=== PATIENT | female | born 1945 | race Caucasian/White ===

== ENCOUNTER 2017-09-04 04:19 | Inpatient (IN) | payer OTHER ==
[~2017-09-04] VITALS: Ht 154.9 cm; Wt 81.6 kg
[2017-09-04] VITALS (10 sets, daily range): BP systolic 115–282; BP diastolic 48–142
[~2017-09-04 04:19] MED LIST: ALBUTEROL NEB; ALBUTEROL2.5 MG/31 INH; CEPHALEXIN 500500 M3 PO; COMBIVENT IN; DILTIAZEM 24HR300 M2 PO; FISH OIL 1,0001 EAC5 PO; HYDROCHLOROTHIA25 M1 PO; HYDROCODONE-AP1 EAC6 PO; IBUPROFEN 800800 M1 PO; MAVIK4 MG PO; MICARDIS HCT 81 EACH PO; SINGULAIR 10 MG10 M1 PO; SUPER-D3+ SOFT1 EACH PO; TRICOR145 MG PO
[2017-09-04 04:48] LABS: ABSOLUTE BASOPHILS 0.1 thou/uL (0.0-0.2); ABSOLUTE EOSINOPHILS 0.2 thou/uL (0.0-0.7); ABSOLUTE LYMPHOCYTES 1.2 thou/uL (0.8-5.3); ABSOLUTE NEUTROPHILS 8.7 thou/uL (1.6-8.1); BASOPHILS 1.1 %; EOSINOPHILS 1.8 %; HEMATOCRIT 37.8 % (37.0-47.0); HEMOGLOBIN 12.5 gm/dL (12.0-15.0); LYMPHOCYTES 10.8 %; MCH 28.7 pg (26.0-34.0); MCHC 33.1 g/dL (28.0-37.0); MCV 86.8 fL (80.0-100.0); MONOCYTES 8.7 %; MPV 10.3 fl. (7.2-11.1); NUCLEATED RBCS 0 /100WBC; PLATELET COUNT* 220 thou/uL (150-400); POLYS 77.6 %; RBC 4.36 mil/uL (4.20-5.00); WBC 11.2 thou/uL (4.0-11.0)
[2017-09-04 05:00] LABS: URINE BILIRUBIN NEGATIVE (Negative); URINE BLOOD 1+ (Negative); URINE CLARITY CLEAR; URINE COLOR STRAW; URINE GLUCOSE-RANDOM TRACE (Negative); URINE KETONES NEGATIVE (Negative); URINE LEUKOCYTES-REFLEX NEGATIVE (Negative); URINE NITRITE-REFLEX NEGATIVE (Negative); URINE PROTEIN 3+ (Negative); URINE SPECIFIC GRAVITY 1.015 (1.005-1.030); URINE UROBILINOGEN 0.2 E.U./dl (0.2-1.0)
[2017-09-04 05:21] LABS: CALCIUM 7.7 mg/dL (8.5-10.1); CREATININE 1.8 mg/dL (0.6-1.3); POTASSIUM 3.8 mmol/L (3.5-5.1)
[2017-09-04 05:32] LABS: ALBUMIN 2.8 g/dL (3.4-5.0); TOTAL BILIRUBIN 0.2 mg/dL (<0.1-1.0)
[2017-09-04 05:45] LABS: FINE GRANULAR CASTS 0-3 Few /LPF (None Seen); SQUAMOUS NONE SEEN /LPF (0-3); URINE WBC-REFLEX 0-5 Rare /HPF (0-5)
[2017-09-04 05:46] LABS: BACTERIA-REFLEX 1-9 Few /HPF (None Seen); CRYSTALS None Seen /LPF (None Seen); URINE RBC 3-10 Few /HPF (0-2)
[2017-09-04] MEDS ORDERED: BYETTA PEN 11 PENIN2 SUBQ (06:44)
[2017-09-04 09:47] LABS: URINE POTASSIUM-RANDOM 14.3 mmol/L
--- NOTE | 2017-09-04 11:59 | EKG ---
[place] [address] ELECTROCARDIOGRAM REPORT Name: DOROTHY OSEGUERA Room: [address] IN [facility]#: [id number] Admission: 09/04/17 Attend Phys: Chevy Escalante MD Discharge: Date of : 47 Report #: [id number] THIS REPORT FOR: //name// [facility] ED Test Date: 2017-09-04 Test Time: 04:29:16 Pat Name: DOROTHY OSEGUERA Department: Room: Gender: Custom Miller: TATEPANTERA : 1945 Requested By: Sherry Foote Order Number: [id number] MD: Osmani Nunez Measurements Intervals [place] Rate: 83 P: -22 UT: 142 QRS: 60 QRSD: 90 T: 106 QT: 352 QTc: 414 Interpretive Statements Sinus rhythm Nonspecific T abnormalities, lateral leads Compared to ECG 09/16/2015 15:47:57 Myocardial infarct finding no longer present T-wave abnormality still present Electronically Signed On 09-04-2017 11:58:58 CDT by Osmani Nunez [email or web address] <ELECTRONICALLY SIGNED> By: Osmani Nunez MD, [facility] 09/04/17 1158 0429 0429 Osmani Nunez MD, [facility] /EPI
--- NOTE | 2017-09-04 14:46 | 2DMMODE ---
[place] [address] 2 D/M-MODE ECHOCARDIOGRAM Name: DOROTHY OSEGUERA Room: [address] IN [facility]#: [id number] Admission: 09/04/17 Attend Phys: Chevy Escalante, Discharge: Date of : 47 Date of Service: 09/04/17 1446 Report #: [id number] THIS REPORT FOR: //name// APPROVED REPORT Study performed: 09/04/2017 12:00:22 EXAM: Comprehensive 2D, Doppler, and color-flow Echocardiogram Patient Location: In-Patient Room #: [facility] Status: routine BSA: 1.73 HR: 72 bpm BP: 207/85 mmHg Rhythm: NSR Other Information Study Quality: Good Indications Hypertension/HDD 2D Dimensions LVEF(%): 71.38 (>50%) IVSd: 16.58 (7-11mm) LVOT Diam: 21.16 (18-24mm) LVDd: 47.21 mm PWd: 14.43 (7-11mm) Ascending Ao: 31.90 (22-36mm) LVDs: 28.02 (25-40mm) Aortic Root: 30.84 mm Chase's LVEF: 71.38 % Volumes Left Atrial Volume (Systole) LA ESV Index: 40.70 mL/m2 Aortic Valve AoV Peak Nickolas.: 1.96 m/s AO Peak Gr.: 15.39 mmHg LVOT Max P.29 mmHg AO Mean Gr.: 7.92 mmHg LVOT Mean P.34 mmHg LVOT Max V: 1.60 m/s AO V2 VTI: 32.36 cm LVOT Mean V: 0.93 m/s HENRY (VTI): 3.23 cm2 LVOT V1 VTI: 29.73 cm Mitral Valve E/A Ratio: 0.75 [place] [address] 2 D/M-MODE ECHOCARDIOGRAM Name: DOROTHY OSEGUERA Room: [address] IN [facility]#: [id number] Admission: 09/04/17 Attend Phys: Chevy Escalante, Discharge: Date of : 47 Date of Service: 09/04/17 1446 Report #: [id number] MV Decel. Time: 271.42 ms MV E Max Nickolas.: 0.88 m/s MV PHT: 78.71 ms MVA (PHT): 2.79 cm2 TDI E/Lateral E': 12.57 E/Medial E': 11.00 Medial E' Nickolas.: 0.08 m/s Lateral E' Nickolas.: 0.07 m/s Pulmonary Valve PV Peak Nickolas.: 1.22 m/s PV Peak Gr.: 5.98 mmHg Tricuspid Valve TR Peak Gr.: 30.16 mmHg RVSP: 35.00 mmHg Left Ventricle The left ventricle is normal size. There is normal LV segmental wall motion. Moderate concentric left ventricular hypertrophy. Left ventricular systolic function is normal. The left ventricular ejection fraction is within the normal range. LVEF is 60-65%. Grade I - abnormal relaxation pattern. Right Ventricle The right ventricle is normal size. The right ventricular systolic function is normal. Atria Left atrium is mildly dilated. The right atrium size is normal. Aortic Valve The aortic valve is normal in structure. No aortic regurgitation is present. There is no aortic valvular stenosis. Mitral Valve The mitral valve is normal in structure. There is no mitral valve regurgitation noted. No evidence of mitral valve stenosis. Tricuspid Valve The tricuspid valve is normal in structure. Trace tricuspid regurgitation. The RVSP is 45 mmHg. Pulmonic Valve The pulmonary valve is normal in structure. There is no pulmonic [place] [address] 2 D/M-MODE ECHOCARDIOGRAM Name: DOROTHY OSEGUERA Room: [address] IN [facility]#: [id number] Admission: 09/04/17 Attend Phys: Chevy Escalante, Discharge: Date of : 47 Date of Service: 09/04/17 1446 Report #: [id number] Great Vessels The aortic root is normal in size. IVC is normal in size and collapses with >50% inspiration Pericardium There is no pericardial effusion. <Conclusion> Moderate concentric left ventricular hypertrophy. LVEF is 60-65%. Left atrium is mildly dilated. Trace tricuspid regurgitation. The RVSP is 45 mmHg. <ELECTRONICALLY SIGNED> By: Osmani Nunez MD, FACC 09/04/17 1446 1446 1446 Osmani Nunez MD, FACC /INF
[2017-09-05 00:33] VITALS: BP 141/58
[2017-09-05 04:20] VITALS: BP 155/65
[2017-09-05 08:00] VITALS: BP 159/69
[2017-09-05 12:00] VITALS: BP 157/55
[2017-09-05 16:00] VITALS: BP 146/53
[2017-09-05 20:00] VITALS: BP 135/52
[2017-09-06] VITALS: BP 142/61
[2017-09-06 04:00] VITALS: BP 135/52
[2017-09-06 05:17] LABS: HEMATOCRIT 32.7 % (37.0-47.0); HEMOGLOBIN 10.9 gm/dL (12.0-15.0); MCH 28.8 pg (26.0-34.0); MCHC 33.2 g/dL (28.0-37.0); MCV 86.6 fL (80.0-100.0); MPV 10.8 fl. (7.2-11.1); RBC 3.77 mil/uL (4.20-5.00); RDW-CV 13.9 % (10.5-14.5); WBC 17.4 thou/uL (4.0-11.0)
[2017-09-06 05:30] LABS: CALCIUM 8.3 mg/dL (8.5-10.1); MAGNESIUM 1.9 mg/dL (1.8-2.4); POTASSIUM 4.5 mmol/L (3.5-5.1)
[2017-09-06 05:32] LABS: CREATININE 3.6 mg/dL (0.6-1.3)
[2017-09-06 08:00] VITALS: BP 163/72
[2017-09-06 11:08] VITALS: BP 165/65
[2017-09-06 12:51] LABS: CALCIUM 8.3 mg/dL (8.5-10.1); CREATININE 3.9 mg/dL (0.6-1.3); POTASSIUM 4.2 mmol/L (3.5-5.1)
[2017-09-06 16:15] VITALS: BP 137/57
[2017-09-06 20:00] VITALS: BP 162/63
[2017-09-07 00:02] VITALS: BP 151/56
[2017-09-07 04:00] VITALS: BP 165/71
[2017-09-07 05:32] LABS: CALCIUM 8.4 mg/dL (8.5-10.1); CREATININE 4.4 mg/dL (0.6-1.3); MAGNESIUM 2.2 mg/dL (1.8-2.4); POTASSIUM 4.7 mmol/L (3.5-5.1)
[2017-09-07 08:00] VITALS: BP 185/78
[2017-09-07 10:12] LABS: URINE BILIRUBIN NEGATIVE (Negative); URINE BLOOD NEGATIVE (Negative); URINE CLARITY CLEAR; URINE COLOR YELLOW; URINE GLUCOSE-RANDOM TRACE (Negative); URINE KETONES NEGATIVE (Negative); URINE LEUKOCYTES-REFLEX NEGATIVE (Negative); URINE NITRITE-REFLEX NEGATIVE (Negative); URINE PROTEIN 2+ (Negative); URINE UROBILINOGEN 0.2 E.U./dl (0.2-1.0)
[2017-09-07 10:20] LABS: CRYSTALS None Seen /LPF (None Seen); HYALINE CASTS 0-3 Few /LPF (None Seen); MUCUS None Seen strn/LPF (None Seen); SQUAMOUS 4-10 Moderate /LPF (0-3)
[2017-09-07 10:21] LABS: BACTERIA-REFLEX None Seen /HPF (None Seen); URINE RBC None Seen /HPF (0-2); URINE WBC-REFLEX 0-5 Rare /HPF (0-5)
[2017-09-07 11:33] VITALS: BP 169/67
[2017-09-07 15:27] VITALS: BP 110/49
[2017-09-07 16:08] LABS: GLOBULIN TOTAL 2.2 g/dL (2.2-3.9); M-SPIKE Not Observed g/dL (Not Observed)
[2017-09-07 17:09] LABS: URINE PROTEIN (MG/DL) 73.9 mg/dL (Not Estab.)
[2017-09-07 20:00] VITALS: BP 108/46
[2017-09-08] VITALS: BP 111/42
[2017-09-08 04:33] VITALS: BP 113/76; BP 133/76
[2017-09-08 07:45] VITALS: BP 157/58
[2017-09-08 08:44] LABS: CALCIUM 7.9 mg/dL (8.5-10.1); CREATININE 4.6 mg/dL (0.6-1.3); POTASSIUM 3.8 mmol/L (3.5-5.1)
--- NOTE | 2017-09-08 10:28 | CON ---
[address] [address] CONSULTATION Name: DOROTHY OSEGUERA Room: [address] IN .R.#: [id number] Admission: 09/04/17 Attend Phys: Chevy Escalante MD Discharge: Date of : 47 Report #: [id number] THIS REPORT FOR: //name// CC: Chevy Barajas DATE OF SERVICE: 09/07/2017 NEPHROLOGY CONSULTATION CONSULTING PHYSICIAN: Dr. Tolbert. REASON FOR NEPHROLOGY CONSULTATION: Acute kidney injury with worsening creatinine every day. CHIEF COMPLAINT: Shortness of breath. HISTORY OF PRESENT ILLNESS: This is a 71-year-old female who has a past medical history of asthma, hypertension, diabetes, according to her, no retinopathy, who came in with 24 hours worsening of shortness of breath before she came to the hospital. The patient was working outside in a lone when she started having wheezing. She came to the ER and she was started on steroids with which her breathing has improved. She also had an echocardiogram done, which showed a grade 1 diastolic dysfunction, but a normal ejection fraction of 71% with RVSP of 45 mmHg. It was also noticed that her blood pressure was extremely high. Systolic blood pressure was running almost 282 systolic. The patient did have an abrupt decline in her blood pressure during her hospital course, but it is again running high now. Her creatinine was found to be elevated to 1.8 when she came in and it has slowly gone up and was 3.6 yesterday morning, 3.9 yesterday last night and 4.4 this morning with a BUN of 95 and hence Nephrology has been consulted. At home, she takes hydrochlorothiazide 25 mg a day, telmisartan 80 mg with hydrochlorothiazide 12.5 mg a day along with other medications. She does not check her blood pressure regularly at home, but she does monitor her sodium intake. She has never been told that she has any kidney problems. She has not passed any kidney stones recently, but has done so in the past. She does take Advil, but only about 2-3 tablets a month. No diarrhea or vomiting. She says she was eating and drinking okay before she came to the hospital. In 2016, her creatinine was 0.9-1. Currently, she is not in any acute distress. Shortness of breath is much better. ALLERGIES: No known drug allergies. REVIEW OF SYSTEMS: Shortness of breath, which is improved. P.o. intake is so-so right now. Other organ systems were reviewed and they were negative. PAST MEDICAL HISTORY: Includes history of hypertension, diabetes, [place] [address] CONSULTATION Name: DOROTHY OSEGUERA Room: [address] IN .#: [id number] Admission: 09/04/17 Attend Phys: Chevy Escalante MD Discharge: Date of : 47 Report #: [id number] asthma, history of hyperlipidemia, history of nephrolithiasis and other medical history was negative. PAST SURGICAL HISTORY: Includes cholecystectomy, section, kidney stone surgery. FAMILY HISTORY: No history of any kidney disease in the family. 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 She does not smoke or take recreational drugs or use alcohol. HOME MEDICATIONS: Include montelukast, fenofibrate, diltiazem, telmisartan- hydrochlorothiazide, hydrochlorothiazide separately, Combivent, albuterol, . PHYSICAL EXAMINATION: VITAL SIGNS: Blood pressure is 185/78, pulse rate is 74, temperature 36.4, respiratory rate is 18, pulse ox is 96% on room air. GENERAL: She is awake, alert, oriented x 3. HEAD, EYES, EARS, NOSE AND THROAT: Mucous membranes are moist. NECK: There was no JVD noted. CHEST: Clear to auscultation bilaterally. No crackles or wheezing. CARDIOVASCULAR: S1, S2 normal. No murmurs heard. ABDOMEN: Soft, nondistended, nontender. Bowel sounds are present. EXTREMITIES: She has no lower extremity edema and symmetrical extremities. SKIN: Dry and skin turgor seems to be normal. NEUROLOGICAL FUNCTION: Gross neurological function seems to be intact. PSYCHIATRIC: Mood and affect seems to be normal. LABORATORY DATA: From this morning, WBC was 17.4, potassium was 4.7, sodium was 137, BUN of 95, creatinine was 4.4 and calcium is 8.4. Other labs were reviewed. IMAGING: Chest x-ray, renal ultrasound and V/Q scan, they were reviewed. ASSESSMENT AND PLAN: 1. Acute kidney injury on likely chronic kidney disease: Her baseline creatinine is not known, but creatinine is now going up. Acute kidney injury is likely with hemodynamic fluctuations in the presence of hydrochlorothiazide and ARB. I would avoid diuretics and BRIAN inhibitors, ARB in the setting of acute kidney injury. She does have some blood in the urine and some protein in the urine, but this is most likely because of accelerated hypertension. Goal is to control blood pressure slowly. I have ordered some serological workup for hematuria and serum immunofixation is pending. Ultrasound did not show any evidence of hydronephrosis. There is no acute need for dialysis. We will give her 1 day challenge with IV fluids in the form of normal saline [place] [address] [place] [address] CONSULTATION Name: DOROTHY OSEGUERA Room: [address] IN .R.#: [id number] Admission: 09/04/17 Attend Phys: Chevy Escalante MD Discharge: Date of : 47 Report #: [id number] hour. 2. Accelerated hypertension: Goal is to control her blood pressure slowly. I have added hydralazine 25 mg t.i.d. withholding parameters to hold for systolic blood pressure less than 120 and I also ordered nifedipine 60 mg a day. Avoid diuretics and BRIAN inhibitor, ARB in the setting of acute kidney injury for now. 3. Proteinuria: This is likely because of accelerated hypertension. Proteinuria should be checked once her blood pressure is better controlled. 4. It will be worthwhile to find out her baseline creatinine if possible. 5. Shortness of breath, asthma exacerbation: The patient has improved with steroids. She does have grade 1 diastolic dysfunction on her echocardiogram, but it does not look like this was congestive heart failure exacerbation. IV fluids will be given as mentioned above. Thank you for this consultation and I will continue to follow along with you and I discussed with Dr. Tolbert as well as the patient's nurse, Christian. <ELECTRONICALLY SIGNED> By: Onelia You MD 09/08/17 1028 1000 MD gregorio Inman
[2017-09-08 11:33] VITALS: BP 145/62
[2017-09-08 14:11] LABS: COMPLEMENT-C4 19 mg/dL (14-44)
[2017-09-08 15:40] VITALS: BP 146/52
[2017-09-08 20:00] VITALS: BP 178/59
[2017-09-08 22:09] LABS: HEPATITIS B SURFACE AG Negative (Negative)
[2017-09-09] VITALS: BP 167/68
[2017-09-09 04:00] VITALS: BP 169/80
[2017-09-09 05:08] LABS: CREATININE 4.6 mg/dL (0.6-1.3); POTASSIUM 4.2 mmol/L (3.5-5.1)
[2017-09-09 08:00] VITALS: BP 204/81
[2017-09-09 10:09] LABS: ANA INTERPRETATION Negative (Negative)
[2017-09-09 11:30] VITALS: BP 156/63
[2017-09-09 15:48] VITALS: BP 141/61
[2017-09-09 16:08] LABS: KAPPA FREE LIGHT CHAINS 18.1 mg/L (3.3-19.4)
[2017-09-09 20:00] VITALS: BP 161/62
[2017-09-10] VITALS: BP 147/61
[2017-09-10 04:39] VITALS: BP 161/65
[2017-09-10 05:44] LABS: ALBUMIN 2.4 g/dL (3.4-5.0); CALCIUM 7.9 mg/dL (8.5-10.1); CREATININE 4.4 mg/dL (0.6-1.3); POTASSIUM 4.3 mmol/L (3.5-5.1); TOTAL BILIRUBIN 0.3 mg/dL (<0.1-1.0); TOTAL PROTEIN 4.5 g/dL (6.4-8.2)
[2017-09-10] MEDS ORDERED: ADULT LOW DOSE81 MG PO (09:08)
[2017-09-10] MEDS ORDERED: CATAPRES0.2 MG PO (09:08)
[2017-09-10] MEDS ORDERED: HYDRALAZINE 2525 MG PO (09:08)
[2017-09-10] MEDS ORDERED: PROCARDIA XL60 MG PO (09:08)
[2017-09-10 09:11] LABS: GLOMERULR BASEM MEMBRN AB 3 units (0-20)
[2017-09-10 09:30] VITALS: BP 188/63
[2017-09-10 11:42] VITALS: BP 156/55
[2017-09-10 15:58] VITALS: BP 167/62
[2017-09-10 17:51] VITALS: BP 167/62
== END 2017-09-10 18:30 | disposition home or self-care (01) | DRG 682 ==
LOC: M.ERS 04:19 → M.TBA-ER 05:35 → M.2W 05:35
PROVIDERS: Emergency Medicine; Internal Medicine; Internal Medicine Nephrology; ADMIT Internal Medicine
DX: N17.0 Acute kidney failure with tubular necrosis (principal); I50.31 Acute diastolic (congestive) heart failure; J45.901 Unspecified asthma with (acute) exacerbation; R65.10 Systemic inflammatory response syndrome (SIRS) of non-infectious origin without acute organ dysfunction; I16.1 Hypertensive emergency; I13.0 Hypertensive heart and chronic kidney disease with heart failure and stage 1 through stage 4 chronic kidney disease, or unspecified chronic kidney disease; E11.22 Type 2 diabetes mellitus with diabetic chronic kidney disease; E78.5 Hyperlipidemia, unspecified; N18.4 Chronic kidney disease, stage 4 (severe); Z90.49 Acquired absence of other specified parts of digestive tract; Z87.442 Personal history of urinary calculi

== ENCOUNTER 2017-09-12 14:18 | Inpatient (IN) | payer OTHER ==
[~2017-09-12] VITALS: Ht 154.9 cm; Wt 69.1 kg
[~2017-09-12 14:18] MED LIST changes: +ADULT LOW DOSE81 MG PO; +BYETTA PEN 11 PENIN2 SUBQ; +CATAPRES0.2 MG PO; +HYDRALAZINE 2525 MG PO; +PROCARDIA XL60 MG PO
[2017-09-12 14:24] VITALS: BP 181/58
[2017-09-12] MEDS ORDERED: COMBIVENT INH (14:35)
[2017-09-12 15:09] LABS: HEMATOCRIT 33.3 % (37.0-47.0); HEMOGLOBIN 11.3 gm/dL (12.0-15.0); MCH 28.9 pg (26.0-34.0); MCHC 33.9 g/dL (28.0-37.0); MCV 85.2 fL (80.0-100.0); MPV 9.4 fl. (7.2-11.1); NUCLEATED RBCS 0 /100WBC; PLATELET COUNT* 276 thou/uL (150-400); RBC 3.91 mil/uL (4.20-5.00); RDW-CV 13.6 % (10.5-14.5); WBC 12.6 thou/uL (4.0-11.0)
[2017-09-12 15:18] LABS: ANION GAP 15 mmol/L (7-16); BUN 72 mg/dL (7-18); CALCIUM 8.2 mg/dL (8.5-10.1); CHLORIDE 102 mmol/L (98-107); CO2 21 mmol/L (21-32); CREATININE 3.5 mg/dL (0.6-1.3); GLUCOSE 88 mg/dL (70-99); POTASSIUM 3.6 mmol/L (3.5-5.1); SODIUM 138 mmol/L (136-145)
[2017-09-12 15:29] LABS: ALBUMIN 2.6 g/dL (3.4-5.0); ALKALINE PHOSPHATASE 39 U/L (46-116); MAGNESIUM 2.2 mg/dL (1.8-2.4); NT-PRO BRAIN NAT PEPTIDE 2476 pg/mL (<300); SGOT 17 U/L (15-37); SGPT 21 U/L (30-65); TOTAL BILIRUBIN 0.4 mg/dL (<0.1-1.0); TOTAL PROTEIN 5.7 g/dL (6.4-8.2); TROPONIN-I LEVEL <0.06 ng/mL (<0.06)
[2017-09-12 15:36] LABS: URINE BILIRUBIN NEGATIVE (Negative); URINE BLOOD NEGATIVE (Negative); URINE CLARITY CLEAR; URINE COLOR YELLOW; URINE GLUCOSE-RANDOM NEGATIVE (Negative); URINE KETONES NEGATIVE (Negative); URINE LEUKOCYTES-REFLEX NEGATIVE (Negative); URINE NITRITE-REFLEX NEGATIVE (Negative); URINE PROTEIN 2+ (Negative); URINE SPECIFIC GRAVITY 1.025 (1.005-1.030); URINE UROBILINOGEN 0.2 E.U./dl (0.2-1.0)
[2017-09-12 15:38] LABS: ABSOLUTE EOSINOPHILS 0.1 thou/uL (0.0-0.7); ABSOLUTE LYMPHOCYTES 0.4 thou/uL (0.8-5.3); ABSOLUTE MONOCYTES 0.6 thou/uL (0.0-1.2); ABSOLUTE NEUTROPHILS 11.5 thou/uL (1.6-8.1)
[2017-09-12 15:39] LABS: PLATELET ESTIMATE ADEQUATE
[2017-09-12 15:48] LABS: AMORPHOUS URATES Few /LPF (None Seen); BACTERIA-REFLEX 1-9 Few /HPF (None Seen); CASTS None Seen /LPF (None Seen); SQUAMOUS 0-3 Few /LPF (0-3); TRANSITIONAL EPITHEL CELL 0-3 Few /LPF (None Seen); URINE RBC None Seen /HPF (0-2); URINE WBC-REFLEX 0-5 Rare /HPF (0-5)
[2017-09-12 17:40] VITALS: BP 172/57
[2017-09-12 18:39] VITALS: BP 167/57
[2017-09-12 19:00] VITALS: BP 168/60
--- NOTE | 2017-09-12 20:08 | NUR ---
PATIENT ADMITTED TO ROOM 308 VIA CART FROM ER AT 1850. 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 IV FLUIDS INFUSING ORDERED TO RIGHT FOREARM. PATIENT'S ADMISSION HISTORY OBTAINED CHARTED. UP WITH SBA TO BATHROOM. PATINET NSR ON MONITOR. FAMILY AT BEDSIDE. ORDERS NOTED. CALL LIGHT WITHIN REACH. WILL CONTINUE WITH PLAN OF CARE.
[2017-09-12 23:24] VITALS: BP 143/51
[2017-09-13 03:57] LABS: HEMATOCRIT 31.3 % (37.0-47.0); HEMOGLOBIN 10.5 gm/dL (12.0-15.0); MCHC 33.6 g/dL (28.0-37.0); MCV 86.3 fL (80.0-100.0); MPV 10.2 fl. (7.2-11.1); RBC 3.63 mil/uL (4.20-5.00); WBC 10.6 thou/uL (4.0-11.0)
[2017-09-13 04:00] LABS: CREATININE 3.6 mg/dL (0.6-1.3); POTASSIUM 3.8 mmol/L (3.5-5.1)
[2017-09-13 04:40] VITALS: BP 148/55
--- NOTE | 2017-09-13 05:17 | NUR ---
ADMISSION FINSIHED THIS SHIFT. PT SLEPT MOST OF SHIFT. ASSESSMENT DOCUMENTED. MEDS GIVEN PER E-MAR. NO REPORTS OF PAIN ON NAUSEA. IV PATENT, FLUIDS INFUSING. WILL CONTINUE WITH PLAN OF CARE.
[2017-09-13 09:00] VITALS: BP 185/62
[2017-09-13 11:31] VITALS: BP 185/64
--- NOTE | 2017-09-13 12:52 | NUR ---
ASSUMED CARES OF PT AT 0700. PT IN BED, BED IN LOW LOCKED POSITION. CALL BUTTON AND PERSONAL ITEMS IN PT REACH. FALL PRECAUTIONS IN PLACE. 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 HYPERTENSIVE. AFEBRILE. PT DENIES PAIN AT THIS TIME. PT PASSING AIR. SKIN INTACT, NO EDEMA NOTED. PT UP INDEPENDENTLY, STEADY / STURDY GAIT. RIGHT FA IV PATENT WITH FLUIDS INFUSING NS 50 ML/HR. MONITOR I&O'S PER NEPHROLOGY. FULL LIQUID DIET. CONSULTS GI AND NEPHROLOGY. HOURLY ROUNDING CONTINUES. WILL CONTINUE TO MONITOR PT STATUS.
--- NOTE | 2017-09-13 15:54 | EKG ---
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
[2017-09-13 16:00] VITALS: BP 155/53
[2017-09-13 19:50] VITALS: BP 165/54
--- NOTE | 2017-09-13 20:14 | NUR ---
REPORT TO RN MANAGED CARE FOR CONTINUED CARES. PT REMAINS STABLE. PT PASSED SMALL HARD BROWN BM THIS SHIFT. PT UP INDEPENDENTLY TO BATHROOM. DIET TOLERATED WELL. PT COOPERATIVE, FRIENDLY, PLEASANT. HOURLY ROUNDING COMPLETED.
[2017-09-13 23:43] VITALS: BP 146/58
[2017-09-14 04:00] VITALS: BP 146/47
[2017-09-14 04:49] LABS: ALBUMIN 2.5 g/dL (3.4-5.0); CALCIUM 8.2 mg/dL (8.5-10.1); CREATININE 3.3 mg/dL (0.6-1.3); MAGNESIUM 2.2 mg/dL (1.8-2.4); POTASSIUM 3.8 mmol/L (3.5-5.1); TOTAL BILIRUBIN 0.3 mg/dL (<0.1-1.0); TOTAL PROTEIN 5.1 g/dL (6.4-8.2)
[2017-09-14 04:53] LABS: HEMATOCRIT 29.9 % (37.0-47.0); HEMOGLOBIN 10.5 gm/dL (12.0-15.0); MCH 29.8 pg (26.0-34.0); MCV 85.1 fL (80.0-100.0); MPV 10.1 fl. (7.2-11.1); RBC 3.51 mil/uL (4.20-5.00); RDW-CV 13.5 % (10.5-14.5); WBC 9.5 thou/uL (4.0-11.0)
--- NOTE | 2017-09-14 05:07 | NUR ---
PT SLEPT MOST OF SHIFT. ASSESSMENT DOCUMENTED. MEDS GIVEN PER E-JUN. NO REPORTS OF PAIN OR NAUSEA. IV PATENT, FLUIDS INFUSING. WILL CONTINUE WITH PLAN OF CARE.
[2017-09-14 08:15] VITALS: BP 190/59
--- NOTE | 2017-09-14 08:22 | CON ---
[address] [address] CONSULTATION Name: DOROTHY OSEGUERA Room: [address] IN [facility]#: [id number] Admission: 09/12/17 Attend Phys: Venu Stephens, Discharge: Date of : 47 Report #: [id number] THIS REPORT FOR: //name// CC: Lobito Barajas Venu Stephens DATE OF SERVICE: 09/13/2017 REQUESTING PHYSICIAN: Venu Stephens MD REASON FOR CONSULT: Abnormal CT and the patient with symptoms of nausea and early satiety. HISTORY OF PRESENT ILLNESS: This is a 71-year-old female with renal failure, exacerbation of asthma, and uncontrolled hypertension, who has recently been discharged from hospital and readmitted. Her new diagnosis was CHF. The patient also reports that she has been feeling nauseous and have sensation of fullness. She also is constipated and reports that she usually has a bowel movement daily. She has had a colonoscopy in the remote past, but does not recall the results. The patient also believes that the [place] which she was started on may have contributing into her nausea. PAST MEDICAL HISTORY: Significant for history of ; asthma; dyslipidemia; diabetes mellitus; hypertension; gallbladder disease, status post cholecystectomy; kidney stone removal. ALLERGIES: No known drug allergy. MEDICATIONS: Please refer to hospital MAR. SOCIAL HISTORY: The patient denies tobacco or alcohol use. FAMILY HISTORY: Noncontributory. PHYSICAL EXAMINATION: VITAL SIGNS: Reveals blood pressure of 148/55, respirations 16, pulse 70, temperature 98.1. LUNGS: Clear. CARDIOVASCULAR: Regular. ABDOMEN: Soft, mildly distended. Bowel sounds are hypoactive. NEUROLOGIC: The patient is alert and oriented x 3. LABORATORY DATA: Reveal sodium of 138, potassium 3.8, BUN is 71, creatinine 3.6, glucose is 65, AST 71, ALT 21, alkaline phosphatase 39, total bilirubin is 0.4, calcium is 8.0, total protein 5.7, albumin is 2.6. INR is 1.0. WBC 10.6 with hemoglobin of 10.5 and platelet [place] 228[place] [address] CONSULTATION Name: DOROTHY OSEGUERA Room: [address] IN [facility]#: [id number] Admission: 09/12/17 Attend Phys: Venu Stephens, Discharge: Date of : 47 Report #: [id number] IMAGING: CT of abdomen and pelvis was obtained. This was significant for mild right upper quadrant and pelvic ascites. There may be also a low-grade partial left upper quadrant small-bowel obstruction as there is small bowel dilation at this level. The liver, pancreas and spleen appeared normal. ASSESSMENT AND PLAN: The patient with anorexia and possible ileus, who also reports constipation for 3 days. I will put her on a motility agent and MiraLax and obtain a KUB tomorrow. We will make further recommendation after her KUB tomorrow. At some point, she may need endoscopic evaluation, but we will make these recommendations at a later time. <ELECTRONICALLY SIGNED> By: Ny Penn MD 09/14/17 0822 0951 2043Ny Penn MD /nt
[2017-09-14 12:00] VITALS: BP 154/73
[2017-09-14 16:00] VITALS: BP 177/56
--- NOTE | 2017-09-14 18:20 | NUR ---
PATIENT RESTING IN BED. PATIENT DENIES ANY PAIN. PATIENT IS TOLERATING FULL LIQUID DIET. PATIENT HAS HAD MULTIPLE BOWEL MOVEMENTS TODAY. PATIENT IS UP AD MARIA LUISA IN ROOM. PATIENT DENIES ANY NEEDS AT THIS TIME. CALL LIGHT WITHIN REACH. WILL CONTINUE TO MONITOR.
[2017-09-14 23:41] VITALS: BP 139/46
[2017-09-15] VITALS (7 sets, daily range): BP systolic 137–203; BP diastolic 45–78
[2017-09-15 04:27] LABS: CALCIUM 8.2 mg/dL (8.5-10.1); CREATININE 2.9 mg/dL (0.6-1.3); PHOSPHORUS* 4.5 mg/dL (2.5-4.9); POTASSIUM 3.8 mmol/L (3.5-5.1)
--- NOTE | 2017-09-15 05:14 | NUR ---
PT SLEPT WELL OVERNIGHT. SLIV. UP AD MARIA LUISA IN ROOM URINATING WELL, BM OVERNIGHT. DENIES N/V OR ABD PAIN. HS ACCUCHECK 154. TELE SR. AM LABS DRAWN. ABLE TO USE CALL LITE AND MAKE NEEDS KNOWN.
--- NOTE | 2017-09-15 13:12 | NUR ---
SW to continue to follow. Since pt renal function improving, possible for pt to not need dialysis at dc; pt hopeful. SW will assist with any safe dc planning needs should they arise. Plan for pt to dc home with family.
--- NOTE | 2017-09-15 16:27 | NUR ---
PATIENT A&OX4, ROOM AIR, IV RIGHT FOREARM SALINE LOCK. UP AD MARIA LUISA, STEADY GAIT. NO C/O PAIN/N/V. CONTINUEING TO MONITOR BOWEL REGIMEN. BILATERAL LOWER EXTREMITY EDEMA. NO OTHER CONCERNS AT THIS TIME. APPROPRAITE AND COOPORATIVE WITH CARE.
[2017-09-16 03:52] VITALS: BP 170/70
[2017-09-16 04:58] LABS: CALCIUM 7.8 mg/dL (8.5-10.1); CREATININE 2.8 mg/dL (0.6-1.3); POTASSIUM 3.9 mmol/L (3.5-5.1)
--- NOTE | 2017-09-16 05:12 | NUR ---
ASSESSMENT COMPLETE. PT SLEPT THROUGH THE NIGHT WITHOUT ANY CONCERNS. PT DENIES PAIN AND N/V. PT IS ON ROOM AIR WITH [place] SATS. PT IS ON MONITOR, NSR. PT IS UP AD MARIA LUISA WITH STEADY GAIT. PT SOA WITH EXERTION. SEE ASSESSMENT FOR OTHER DETAILS. CALL LIGHT WITHIN REACH, WILL CONTINUE PLAN OF CARE.
[2017-09-16 08:00] VITALS: BP 193/65
[2017-09-16 11:24] VITALS: BP 153/61
[2017-09-16] MEDS ORDERED: PRAZOSIN HCL1 MG PO (15:09)
[2017-09-16] MEDS ORDERED: HYDRALAZINE 2525 MG PO (15:09)
[2017-09-16] MEDS ORDERED: PROCARDIA XL30 MG PO (15:09)
[2017-09-16] MEDS ORDERED: MIRALAX17 GM PO (15:40)
[2017-09-16 15:41] VITALS: BP 153/61
[2017-09-16 16:17] VITALS: BP 178/56
--- NOTE | 2017-09-16 17:15 | NUR ---
PATIENT A&OX4, ROOM AIR, IV RIGHT WRIST SALINE LOCK. UP AD MARIA LUISA, STEADY GAIT. NO C/O PAIN/N/V. BP RUNS HIGH, RESOLVED WITH INCREASE OF BP MEDICATION. PATIENT DISCHARGED TODAY. REVIEWED PAPERWORK WITH PATIENT WHILE DAUGHTER AT BEDSIDE. SCRIPTS GIVEN, ALL QUESTIONS AND CONCERNS ANSWERED. NO FURTHER QUESTIONS AT THIS TIME. IV DISCONTINUED, CATHETER FULLY INTACT. PATIENT LEFT UNIT AT 1650 VIA W/C WITH DAUGHTER. ALL BELONGINGS TAKEN WITH PATIENT, NOTHING LEFT BEHIND. APPROPRIATE AND COOPORATIVE WITH CARE.
--- NOTE | 2017-09-24 12:02 | CON ---
[address] [address] CONSULTATION Name: DOROTHY OSEGUERA Room: [address] [place] .R.#: [id number] Admission: 09/12/17 Attend Phys: Venu Stephens, Discharge: 09/16/17 Date of : 47 Report #: [id number] THIS REPORT FOR: //name// CC: Lobito Barajas Venu Stephens DATE OF SERVICE: 09/13/2017 CONSULTING PHYSICIAN: Venu Stephens MD REASON FOR NEPHROLOGY CONSULTATION: Recent acute kidney injury and uncontrolled hypertension. CHIEF COMPLAINT: Nausea, poor p.o. intake and abdominal bloating. HISTORY OF PRESENT ILLNESS: This is a 71-year-old female who has past medical history of asthma, hypertension, diabetes, no retinopathy who was recently discharged on 09/10 from [facility] when she was admitted for uncontrolled blood pressure and shortness of breath and also had acute kidney injury at that time. Her creatinine had peaked to 4.4 and then stabilized. It was determined that she had an asthma exacerbation at that time, which got better with prednisone. She also had an echo done, which showed a normal ejection fraction of 71% recently with RVSP of 45 mmHg with grade 1 diastolic dysfunction. It did not look like she was in CHF exacerbation at that time and her diuretics and BRIAN inhibitor were stopped because of acute kidney injury. Her creatinine has improved to 3.5 as of yesterday and it is 3.6 today. So she came in again to the hospital because after she took her Byetta for her diabetes, she had nausea and just a sensation of vomiting, but no real vomiting and she has not had a bowel movement in the last 2 days and she felt abdominal bloating. She has had similar symptoms with Aidee recently as well. It was also noticed that the patient's blood pressure was high when she came into the hospital in 180 systolic, but then got better to 148 systolic with holding home blood pressure medications. Blood pressure has again gone up this morning. Nephrology has been consulted because of her elevated creatinine and high blood pressure. We do not know her exact baseline creatinine, but her creatinine on 09/04/2017 was 1.8. The patient is feeling a little better, but she still has bloating in her abdomen and she is not comfortable because she has not had a bowel movement in the last 2 days. She does not take any NSAIDs and there is no recent history of kidney stones and she has no urinary complaints and she says she has been urinating a lot. ALLERGIES: She has no known drug allergies. REVIEW OF SYSTEMS: Nausea, abdominal bloating, constipation and other organ systems were reviewed [place] [address] CONSULTATION Name: DOROTHY OSEGUERA Room: [address] [place] M.R.#: [id number] Admission: 09/12/17 Attend Phys: Venu Stephens, Discharge: 09/16/17 Date of : 47 Report #: [id number] PAST MEDICAL HISTORY: Includes history of hypertension, diabetes, asthma, hyperlipidemia, history of nephrolithiasis. PAST SURGICAL HISTORY: Includes cholecystectomy, section, kidney stone surgery. FAMILY HISTORY: No history of any kidney disease in the family. 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 She does not smoke or take recreational drugs or use alcohol. HOME MEDICATIONS: They include clonidine 0.2 mg b.i.d., hydralazine 25 mg t.i.d. as needed, nifedipine 60 mg once a day, aspirin 81 mg once a day, montelukast, diltiazem 300 mg daily, hydrochlorothiazide 25 mg daily which the patient was not taking, fenofibrate 145 mg daily, Combivent, albuterol, exenatide or Byetta. PHYSICAL EXAMINATION: VITAL SIGNS: Blood pressure is 148/55, respiratory rate 16, pulse rate 70, temperature 36.7, and pulse ox was 92% on room air. GENERAL: She is awake, alert, oriented x 3. HEAD, EYES, EARS, NOSE, THROAT: Mucous membranes are moist. NECK: No JVD. CHEST: Clear to auscultation bilaterally. No crackles or wheezing. CARDIOVASCULAR: S1, S2 normal. No murmurs or rubs. ABDOMEN: Soft, but it is bloated, it is not tender. Bowel sounds are diminished. Distended. LOWER EXTREMITIES: There is no edema. Symmetrical extremities. NEUROLOGICAL FUNCTION: Gross neurological function is intact. PSYCHIATRIC: Mood and affect seem to be normal. LABORATORY DATA: From today, hemoglobin is 10.5, WBC 7.6. Sodium is 138, potassium is 3.8 and creatinine is 3.6, CO2 is 19. Other labs were reviewed. IMAGING: Chest x-ray, abdominal and pelvic CT were reviewed. There was no abnormality at the level of her kidneys on abdominal CT. She had evidence of low grade partial small bowel obstruction. ASSESSMENT AND PLAN: 1. Recent acute kidney injury because of ischemic acute tubular necrosis because of BRIAN inhibitor and diuretics: The patient's creatinine had recently peaked at 4.4, in fact it is getting better now. It is 3.6 today. Creatinine was 3.5 yesterday, but I would still say that it is in a stable range. She is still making urine. We need to record her urine output accurately. I would avoid all diuretics right now and BRIAN inhibitors and ARBs. There is no evidence of any obstruction on abdominal CT scan. Avoid other [place] [address] CONSULTATION Name: DOROTHY OSEGUERA Room: [address] [place] M.R.#: [id number] Admission: 09/12/17 Attend Phys: Venu Stephens, Discharge: 09/16/17 Date of : 47 Report #: [id number] exact baseline creatinine is not known but we do know that before her acute kidney injury, started on 09/04/2017, her creatinine was 1.8. UA shows 2+ protein, but no blood in it. Similar findings as before and probably she has some proteinuria because of hypertension. 2. Uncontrolled hypertension: She was recently started on nifedipine and hydralazine. We will continue her other blood pressure medications, but stop hydrochlorothiazide. The patient was not taking hydrochlorothiazide at home as well. We will increase her nifedipine to 90 mg once a day and follow her blood pressure. 3. Partial small bowel obstruction: GI has been consulted. This can explain her abdominal bloating and nausea sensation. Off to note Aidee can also cause nausea and constipation. It seems like Aidee is not suiting her and she probably will do better without it. We will defer to primary team for that. 4. Chronic diastolic congestive heart failure: The patient is currently looking mildly hypovolemic. Agree with normal saline at 50 mL an hour for now. She does not need any diuretics right now. Her ejection fraction was 71% with grade 1 diastolic dysfunction with right ventricular systolic pressure of 45 mmHg. 5. Metabolic acidosis: No need for sodium bicarbonate right now but if it keeps getting worse, then we may have to add some. This is because of her renal dysfunction. Thank you for this consultation and we will continue to follow along with you. Plan was discussed with the patient and the patient's daughter as well as the patient's nurse, . <ELECTRONICALLY SIGNED> By: Onelia You MD 09/24/17 1202 0915 1950Onelia You MD /nt
== END 2017-09-16 16:50 | disposition home or self-care (01) | DRG 682 ==
LOC: M.ERS 14:18 → M.3W 16:59 → M.TBA-ER 16:59 → M.3W 18:51
PROVIDERS: Internal Medicine Nephrology; Nurse Practitioner Family; ADMIT Family Medicine
DX: N17.9 Acute kidney failure, unspecified (principal); E43 Unspecified severe protein-calorie malnutrition; R65.11 Systemic inflammatory response syndrome (SIRS) of non-infectious origin with acute organ dysfunction; I13.0 Hypertensive heart and chronic kidney disease with heart failure and stage 1 through stage 4 chronic kidney disease, or unspecified chronic kidney disease; K56.600 Partial intestinal obstruction, unspecified as to cause; I50.32 Chronic diastolic (congestive) heart failure; E87.2 Acidosis; R18.8 Other ascites; N18.4 Chronic kidney disease, stage 4 (severe); R63.0 Anorexia; J45.909 Unspecified asthma, uncomplicated; E78.5 Hyperlipidemia, unspecified; E11.9 Type 2 diabetes mellitus without complications; Z79.82 Long term (current) use of aspirin; Z98.891 History of uterine scar from previous surgery; Z79.899 Other long term (current) drug therapy; Z87.442 Personal history of urinary calculi; Z90.49 Acquired absence of other specified parts of digestive tract; Z68.28 Body mass index [BMI] 28.0-28.9, adult

== ENCOUNTER 2017-09-22 20:46 | Emergency (ER) | payer OTHER ==
[~2017-09-22] VITALS: Ht 154.9 cm; Wt 64.9 kg
[~2017-09-22 20:46] MED LIST changes: +COMBIVENT INH; +MIRALAX17 GM PO; +PRAZOSIN HCL1 MG PO; +PROCARDIA XL30 MG PO
[2017-09-22] MEDS ORDERED: CATAPRES0.2 MG (21:01)
[2017-09-22 21:25] VITALS: BP 193/67
== END 2017-09-22 21:25 | disposition home or self-care (01) ==
LOC: M.ERS 20:46
DX: I11.0 Hypertensive heart disease with heart failure (principal); I50.9 Heart failure, unspecified; J45.909 Unspecified asthma, uncomplicated; E78.5 Hyperlipidemia, unspecified; E11.9 Type 2 diabetes mellitus without complications